=== PATIENT | female | born 1980 | race Caucasian/White ===

== ENCOUNTER 2018-10-12 14:56 | Emergency (ER) | payer OTHER ==
[2018-10-12 15:33] VITALS: BP 106/72
--- NOTE | 2018-10-12 15:37 | UC ---
Skin Complaint HPI - HPI Summary HPI Summary: 38-year-old female presents with onset of rash to her left inner thigh yesterday. Denies fever, chills, pruritus, tenderness, drainage, changes in diet, medications, soaps, detergents, lotions, cosmetics, or known contact with environmental irritants. - History of Current Complaint Chief Complaint: UCSkin Time Seen by Provider: 10/12/18 15:04 Stated Complaint: SKIN CONCERN LT THIGH Hx Obtained From: Patient Hx Last Menstrual Period: 01/2009 Pain Intensity: 0 - Allergy/Home Medications Allergies/Adverse Reactions: Allergies Allergy/AdvReac Type Severity Reaction Status Date / Time latex Allergy Hives Verified 10/12/18 15:33 grass Allergy Severe Anaphylatic Uncoded 04/29/15 20:37 Shock Home Medications: Home Medications Cyclobenzaprine TAB* [Flexeril 10 MG TAB*] 1 tab PO TID PRN 10/12/18 [History Confirmed 10/12/18] Fluticasone/Vilanterol [Breo Ellipta 200-25 Mcg INH] 1 puff INH DAILY 10/12/18 [ History Confirmed 10/12/18] Quetiapine Fumarate [Quetiapine Fumarate ER] 1 tab PO BEDTIME 10/12/18 [History Confirmed 10/12/18] Sertraline HCl [Zoloft] 1 tab PO BEDTIME 10/12/18 [History Confirmed 10/12/18] raNITIdine HCl [Ranitidine HCl] 1 tab PO BID 10/12/18 [History Confirmed ] PMH/Surg Hx/FS Hx/Imm Hx Respiratory History: Asthma Psychological History: Depression - Surgical History Surgical History: Yes Surgery Procedure, Year, and Place: tubes in ears. ovarian cyst removal. head - cyst removal 12/01/12. tubal 11/24. uterine ablation 11/24. LEFT OVARY AND FALLOPIAN TUBE REMOVAL , RELEASE OF ADHESIONS10/18/14 - Family History Known Family History: Positive: Cardiac Disease, Diabetes - Social History Occupation: Unemployed Lives: With Family Alcohol Use: Rare Substance Use Type: None Smoking Status (MU): Former Smoker Type: Cigarettes Amount Used/How Often: 1/2 PPD Have You Smoked in the Last Year: Yes When Did the Patient Quit Smoking/Using Tobacco: 06/2016 Review of Systems All Other Systems Reviewed And Are Negative: Yes Constitutional: Negative: Fever, Chills Skin: Positive: Rash ENT: Positive: Negative Respiratory: Negative: Shortness Of Breath Cardiovascular: Positive: Negative Gastrointestinal: Positive: Negative Genitourinary: Positive: Negative Musculoskeletal: Positive: Negative Neurological: Positive: Negative Is Patient Immunocompromised?: No Physical Exam - Summary Physical Exam Summary: GENERAL APPEARANCE: Well developed, well nourished, alert and cooperative, and appears to be in no acute distress. CARDIAC: Normal S1 and S2. No S3, S4 or murmurs. Rhythm is regular. There is no peripheral edema, cyanosis or pallor. Extremities are warm and well perfused. Capillary refill is less than 2 seconds. Peripheral pulses intact. LUNGS: Clear to auscultation without rales, rhonchi, wheezing or diminished breath sounds. ABDOMEN: Positive bowel sounds. Soft, nondistended, nontender. No guarding or rebound. No masses or hepatosplenomegally. MUSKULOSKELETAL: ROM intact to all extremities. No joint erythema or tenderness. Normal muscular development. Normal gait. SKIN: Skin normal color, texture and turgor. Erythematous, confluent, maculopapular rash to the left inner thigh. Triage Information Reviewed: Yes Vital Signs: Initial Vital Signs Temp 98.7 F 10/12/18 15:28 Pulse 83 10/12/18 15:28 Resp 16 10/12/18 15:28 BP 106/72 10/12/18 15:28 Pulse Ox 98 10/12/18 15:28 Vital Signs Reviewed: Yes Course/Dx - Course Course Of Treatment: 38-year-old female presents with onset of rash to her left inner thigh yesterday. Denies fever, chills, pruritus, tenderness, drainage, changes in diet, medications, soaps, detergents, lotions, cosmetics, or known contact with environmental irritants. Afebrile. Vital signs stable. Patient had an erythematous, confluent, macular papular rash to her inner left thigh and otherwise unremarkable exam. We'll treat for a contact dermatitis with clobetasol cream twice for up to 2 weeks. She is to follow-up with her primary care provider in 3-5 days if symptoms are not improving. Anticipatory guidance warning symptoms were reviewed with the patient. Verbalizes understanding and agrees with plan of care. - Differential Diagnoses - Skin Complaint Differential Diagnoses: Cellulitis, Contact Dermatitis, Poison [place], Poison [place], Tinea - Diagnoses Provider Diagnosis: Contact dermatitis Discharge - Sign-Out/Discharge Documenting (check all that apply): Patient Departure All imaging exams completed and their final reports reviewed: No Studies - Discharge Plan Condition: Stable Disposition: HOME Prescriptions: Clobetasol Propionate/Emoll [Clobetasol Emollient 0.05% Crm] 30 gm TP BID #1 tube Patient Education Materials: Contact Dermatitis (ED) Referrals: Tracy Valenzuela MD [Primary Care Provider] - 3 Days Additional Instructions: Your rash appears to be a contact dermatitis of unknown cause. Use clobetasol cream. Apply a thin layer to the affected area twice a day. Do not use for more than 2 weeks. Follow-up with your primary care provider in 3-5 days if symptoms are not improving. Seek immediate medical attention in the emergency room if you develop swelling of the lips, tongue, throat, difficulty breathing, or any worsening of symptoms. - Billing Disposition and Condition Condition: STABLE Disposition: Home - Attestation Statements Provider Attestation: I was available for consult. This patient was seen by the [facility]. The patient was not presented to, seen by, or examined by me. Samson Fenton MD
== END 2018-10-12 15:59 | disposition home or self-care (01) ==
LOC: UCCORT 14:56
DX: L25.9 Unspecified contact dermatitis, unspecified cause (principal); J45.909 Unspecified asthma, uncomplicated; F32.9 Major depressive disorder, single episode, unspecified; Z87.891 Personal history of nicotine dependence
CPT/HCPCS: 99212; G0463

== ENCOUNTER 2019-05-26 11:52 | Emergency (ER) | payer OTHER ==
[2019-05-26 12:25] VITALS: BP 111/52
--- NOTE | 2019-05-26 12:50 | UC ---
Respiratory Complaint HPI - HPI Summary HPI Summary: Per larriman: ""I've got a nasty cough. I'm coughing up greenish-yellow. I have a headache. I' ve had a fever on and off. I'm wheezing. My chest is tight." Fever (tmax 101.8) , headache, "a little bit more [than normal]" nasal congestion, "really bad" PND , "greenish-yellow" productive cough, subjective shortness of breath, "wheezing ", chest "tight", decreased appetite, myalgias, and more than normal fatigue. When asked, denies sore throat, NVD, chills, sweats, or weakness." -sx started 2-3 days ago. doesnt work. no rash. no SOB or difificulty breathing - History of Current Complaint Chief Complaint: UCRespiratory Stated Complaint: COUGH, FEVER, HEADACHE Time Seen by Provider: 05/26/19 12:45 Hx Last Menstrual Period: "I don't get 'em anymore." Pain Intensity: 7 - Allergies/Home Medications Allergies/Adverse Reactions: Allergies Allergy/AdvReac Type Severity Reaction Status Date / Time latex Allergy Hives Verified 05/26/19 12:20 grass Allergy Severe Anaphylatic Uncoded 05/26/19 12:20 Shock Home Medications: Home Medications Albuterol HFA INHALER* [Ventolin HFA Inhaler*] 2 puff INH Q4H PRN 05/26/19 [ History Confirmed 05/26/19] Budesonide/Formote 160/4.5(NF) [Symbicort 160/4.5 (NF)] 2 puff INH BID 05/26/19 [History Confirmed 05/26/19] Cetirizine* [ZyrTEC 10 MG TAB*] 10 mg PO DAILY 05/26/19 [History Confirmed 05/25] Cyclobenzaprine TAB* [Flexeril 10 MG TAB*] 10 mg PO TID PRN 05/26/19 [History Confirmed 05/26/19] DULoxetine DR CAP* [Cymbalta CAP*] 60 mg PO DAILY 05/26/19 [History Confirmed ] EPINEPHrine [Epipen] 0.3 mg IM SEE INSTRUCTIONS PRN 05/26/19 [History Confirmed 05/26/19] Fluticasone NASAL SPRAY 50MCG* [Flonase NASAL SPRAY 50MCG*] 2 spray BOTH NARES DAILY 05/26/19 [History Confirmed 05/26/19] Montelukast Sodium TAB* [Singulair 10 MG TAB*] 10 mg PO DAILY 05/26/19 [History Confirmed 05/26/19] Naproxen TAB* [Naprosyn 250 mg TAB*] 500 mg PO BID 05/26/19 [History Confirmed 05/26/19] Omeprazole CAP (NF) [Prilosec CAP* 20 MG] 20 mg PO BID 05/26/19 [History Confirmed 05/26/19] Omeprazole CAP (NF) [Prilosec CAP* 20 MG] 20 mg PO DAILY 05/26/19 [History Confirmed 05/26/19] Oseltamivir CAP* [Tamiflu CAP*] 75 mg PO BID #10 cap 05/26/19 [Rx] Simethicone [Gas Relief] 180 - 360 mg PO DAILY PRN 05/26/19 [History Confirmed 05/26/19] Vitamin THERAPEUTIC TAB* [Theragran TAB*] 1 tab PO DAILY 05/26/19 [History Confirmed 05/26/19] Zolpidem TAB* [Ambien*] 5 - 7.5 mg PO BEDTIME 05/26/19 [History Confirmed ] cloNIDine HCl [Catapres 0.2 MG TAB] 0.6 mg PO BEDTIME 05/26/19 [History Confirmed 05/26/19] hydrOXYzine pamoate [Hydroxyzine Pamoate] 25 mg PO Q6H PRN 05/26/19 [History Confirmed 05/26/19] PMH/Surg Hx/FS Hx/Imm Hx Previously Healthy: Yes Respiratory History: Asthma - Surgical History Surgical History: Yes Surgery Procedure, Year, and Place: Right Oopherectmy and Tube Removed, 04/2019, [place]; tubes in ears. ovarian cyst removal. head- cyst removal 12/01/12. tubal 11/24. uterine ablation 11/24. LEFT OVARY AND FALLOPIAN TUBE REMOVAL , RELEASE OF ADHESIONS10/18/14 - Family History Known Family History: Positive: Cardiac Disease, Diabetes - Social History Alcohol Use: Occasionally Substance Use Type: None Smoking Status (MU): Heavy Every Day Tobacco Smoker Type: Cigarettes Amount Used/How Often: 1/2 PPD Length of Time of Smoking/Using Tobacco: Since Age 5 Have You Smoked in the Last Year: Yes When Did the Patient Quit Smoking/Using Tobacco: 06/2016 Review of Systems All Other Systems Reviewed And Are Negative: Yes Constitutional: Positive: Fever, Chills, Fatigue Skin: Positive: Negative. Negative: Rash Eyes: Positive: Negative ENT: Positive: Nasal Discharge, Sinus Pain/Tenderness Respiratory: Positive: Cough. Negative: Shortness Of Breath Cardiovascular: Positive: Negative. Negative: Palpitations, Chest Pain Gastrointestinal: Positive: Nausea. Negative: Vomiting, Diarrhea Genitourinary: Positive: Negative. Negative: Dysuria Motor: Positive: Negative Neurovascular: Positive: Negative Musculoskeletal: Positive: Myalgia Neurological/Mental Status: Positive: Negative Psychological: Positive: Negative Is Patient Immunocompromised?: No Physical Exam Appearance: Ill-Appearing - mild-moderate Vital Signs: Initial Vital Signs Temp 98.7 F 05/26/19 12:16 Pulse 72 05/26/19 12:16 Resp 14 05/26/19 12:16 BP 111/52 05/26/19 12:16 Pulse Ox 100 05/26/19 12:16 Vital Signs Reviewed: Yes Eye Exam: Normal Eyes: Positive: Conjunctiva Clear ENT Exam: Normal ENT: Positive: Pharyngeal erythema, Nasal congestion, TMs normal, Uvula midline. Negative: Sinus tenderness Neck exam: Normal Neck: Positive: Supple, Nontender, No Lymphadenopathy Respiratory Exam: Normal Respiratory: Positive: Chest non-tender, Lungs clear, Normal breath sounds, No respiratory distress, No accessory muscle use. Negative: Crackles, Rhonchi, Stridor, Wheezing Cardiovascular Exam: Normal Cardiovascular: Positive: RRR Abdominal Exam: Normal Abdomen Description: Positive: Nontender, Soft. Negative: Peritoneal Signs Bowel Sounds: Positive: Present Musculoskeletal Exam: Normal Neurological Exam: Normal Psychological Exam: Normal Skin Exam: Normal Skin: Negative: Rashes Respiratory Course/Dx - Course Course Of Treatment: + rapid flu. CXR neg -doesnt need OOW note - unepmployed. take snaproxyn 500mgs BID -c ont w/ this -stresedd fluids and f/u instrictions if not better or worse - Differential Dx/Diagnosis Differential Diagnosis/HQI/PQRI: Asthma, Bronchitis, Influenza Provider Diagnosis: Influenza Discharge ED - Sign-Out/Discharge Documenting (check all that apply): Patient Departure All imaging exams completed and their final reports reviewed: Yes - Discharge Plan Condition: Stable Disposition: HOME Prescriptions: Oseltamivir CAP* [Tamiflu CAP*] 75 mg PO BID #10 cap Patient Education Materials: Influenza (ED) Referrals: Tracy Valenzuela MD [Primary Care Provider] - Additional Instructions: Drink plenty of fluids sips at a time and get plenty of rest. You should begin to feel better in the next 2-3 days. if you feel worse or not any better in that time frame you should be re-evaluated. Chest xray is negative for pneumonia and flu is positive. You are being treated w/ tamiflu. Please call your PCP in 3-4 days for further follow up instruction. - Billing Disposition and Condition Condition: STABLE Disposition: Home
[2019-05-26 12:59] LABS: Influenza A Molecular POSITIVE (Negative)
== END 2019-05-26 13:44 | disposition home or self-care (01) ==
LOC: UCCORT 11:52
DX: J11.1 Influenza due to unidentified influenza virus with other respiratory manifestations (principal); J45.909 Unspecified asthma, uncomplicated; F17.210 Nicotine dependence, cigarettes, uncomplicated; Z91.09 Other allergy status, other than to drugs and biological substances; Z91.040 Latex allergy status; Z79.51 Long term (current) use of inhaled steroids
CPT/HCPCS: 71046; 99212; G0463